=== PATIENT | male | born 1970 | race Caucasian/White ===

== ENCOUNTER 2019-09-15 09:35 | Day surgery (SDC) | payer BC ==
[2019-09-15] MEDS ORDERED: LIDOCAINE 2% MDV (20MG/ML) 20ML VIAL IV ONE (09:36)
[2019-09-15] MEDS ORDERED: PROPOFOL 10 MG/ML VIAL IV ONE (09:36)
--- NOTE | 2019-09-15 15:20 | Operative Note ---
OPERATION: COLONOSCOPY with cold snare polypectomy. PREOPERATIVE DIAGNOSIS: Colon cancer screening, initial exam. POSTOPERATIVE DIAGNOSES: 1. Cecal polyps x2. 2. Scattered colonic diverticula (few). PREPARATION QUALITY: Good. ESTIMATED BLOOD LOSS: Minimum. SPECIMENS: Cecal polyps. COMPLICATIONS: None apparent. PROCEDURE: After informed consent was obtained from the patient, he was placed in the left lateral decubitus position in the endoscopy suite, sedated and monitored by the department of anesthesia. Digital rectal exam was unremarkable. A well-lubricated [id number] colonoscope was inserted into the rectum and advanced to the cecum. The cecum and cecal bulb were inspected revealing 2 polyps ranging in size from 5-6 mm each removed with a cold snare. There were a few diverticula seen in the ascending colon and sigmoid colon. Otherwise, there were no other polyps seen including the ascending colon, transverse colon, descending colon, sigmoid colon, and rectum. J-turn views of the anorectum were unremarkable. The endoscope was straightened, the rectal ampulla deflated, and the endoscope was removed. RECOMMENDATIONS: I would suggest the patient follow a high-fiber diet and resume his medications. He will require repeat exam in 3-5 years pending tissue histology. As always, thank you for allowing me to participate in the healthcare of your patients. CASSIDY
== END 2019-09-15 12:08 | disposition home or self-care (01) ==
LOC: HOP 09:35
PROVIDERS: ATTEND Internal Medicine Gastroenterology
DX: Z12.11 Encounter for screening for malignant neoplasm of colon (principal); D12.0 Benign neoplasm of cecum; K57.30 Diverticulosis of large intestine without perforation or abscess without bleeding; I10 Essential (primary) hypertension